=== PATIENT | male | born 1960 | race African-American/Black ===

== ENCOUNTER 2018-06-05 11:41 | Inpatient (IN) | payer OTHER ==
[~2018-06-05] VITALS: Ht 175.3 cm; Wt 87.5 kg
[2018-06-05 12:28] LABS: BASOPHILS % 0.3 % (0.0-2.0); EOSINOPHILS % 0.7 % (0.0-5.0); HEMATOCRIT. 44.7 % (42.0-52.0); HEMOGLOBIN. 15.1 g/dL (14.0-18.0); LYMPHOCYTES % 8.3 % (20.0-50.0); MEAN CORPUSCULAR HEMOGLOBIN 30.4 pg (28.0-32.0); MEAN CORPUSCULAR VOLUME 89.9 fL (80.0-94.0); MEAN PLATELET VOLUME 9.8 fl (7.4-10.4); MONOCYTES % 5.7 % (2.0-8.0); PLATELET 186 x1000/uL (130-400); RED BLOOD CELL COUNT 4.97 mill/uL (4.7-6.1); RED CELL DISTRIBUTION WIDTH 14.1 % (11.6-14.6)
[2018-06-05 12:34] LABS: INR 1.1; PROTHROMBIN TIME 10.7 sec (9.1-11.1)
[2018-06-05] MEDS ORDERED: IOHEXOL-350 100 ML BOTTLE ONE (12:38)
[2018-06-05 12:51] LABS: CHLORIDE 95 mEq/L (98-107)
[2018-06-05 12:55] LABS: ETHANOL BLOOD < 10 mg/dL
[2018-06-05 12:58] LABS: LDL CHOLESTEROL 49 mg/dL (5-100)
[2018-06-05] MEDS ORDERED: ASPIRIN 81MG TABLET PO ONE (13:00)
[2018-06-05 13:04] LABS: CLARITY URINE TURBID (CLEAR); COLOR URINE DARK YELLOW (YELLOW); KETONES URINE TRACE (NEGATIVE); LEUKOCYTE ESTERASE URINE NEGATIVE (NEGATIVE); NITRITE URINE NEGATIVE (NEGATIVE); OCCULT BLOOD URINE 3+ (NEGATIVE); PH URINE 5.5 (4.5-8.0); PROTEIN URINE 3+ (NEGATIVE); SPECIFIC GRAVITY URINE 1.047 (1.005-1.030)
[2018-06-05 13:31] LABS: *AMPHETAMINES SCREEN URINE NEGATIVE (NEGATIVE); *BARBITURATES SCREEN URINE NEGATIVE (NEGATIVE); *BENZODIAZEPINES SCREEN URINE NEGATIVE (NEGATIVE); *COCAINE SCREEN URINE PRESUMTIVE POSITIVE (NEGATIVE); METHADONE URINE SCREEN NEGATIVE (NEGATIVE); PHENCYCLIDINE URINE SCREEN NEGATIVE (NEGATIVE)
[2018-06-05 13:32] LABS: CANNABINOID URINE SCREEN NEGATIVE (NEGATIVE)
[2018-06-05 13:33] LABS: OPIATES URINE SCREEN NEGATIVE (NEGATIVE)
[2018-06-05] MEDS ORDERED: ASPI-1158 PO (14:42)
[2018-06-05] MEDS ORDERED: CARV12.545 PO (14:42)
[2018-06-05] MEDS ORDERED: SPIR25TA6 PO (14:42)
[2018-06-05] MEDS ORDERED: TRAM50TA3 PO (14:42)
[2018-06-05] MEDS ORDERED: FURO40TA5 PO (14:42)
[2018-06-05] MEDS ORDERED: LISI10TA5 PO (14:42)
[2018-06-05] MEDS ORDERED: DEXTROSE 50% WATER 50ML SYRINGE IV PRN (15:00)
[2018-06-05] MEDS ORDERED: TRAMADOL 50MG TABLET PO PRN (15:00)
[2018-06-05 15:49] VITALS: BP 104/69
[2018-06-05] MEDS: ENOXAPARIN 30MG/0.3ML SYR SUBCUT SCH (17:02)
[2018-06-05] MEDS: BLOOD SUGAR DIAGNOSTIC STRIP TEST SCH ×2 (17:05→20:48)
[2018-06-05] MEDS: INSULIN LISPRO 100 UNITS/ML SUBCUT SCH ×2 (17:05→20:49)
[2018-06-05] MEDS: PIPERACILLIN/TAZ 3.375G PREMIX 50 ML IV SCH (17:33)
[2018-06-05 20:00] VITALS: BP 174/69
[2018-06-05] MEDS: CARVEDILOL 12.5MG TABLET PO SCH (20:55)
[2018-06-06] VITALS: BP 106/48
[2018-06-06] MEDS: PIPERACILLIN/TAZ 3.375G PREMIX 50 ML IV SCH ×3 (02:26→17:51)
[2018-06-06 04:00] VITALS: BP 97/64
[2018-06-06] MEDS: BLOOD SUGAR DIAGNOSTIC STRIP TEST SCH ×4 (06:23→20:15)
[2018-06-06 06:45] LABS: BASOPHILS % 0.2 % (0.0-2.0); EOSINOPHILS % 0.1 % (0.0-5.0); HEMATOCRIT. 42.9 % (42.0-52.0); HEMOGLOBIN. 14.3 g/dL (14.0-18.0); LYMPHOCYTES % 9.5 % (20.0-50.0); MEAN CORPUSCULAR HEMOGLOBIN 30.1 pg (28.0-32.0); MEAN PLATELET VOLUME 9.7 fl (7.4-10.4); MONOCYTES % 6.3 % (2.0-8.0); NEUTROPHILS % 83.9 % (40.0-76.0); PLATELET 149 x1000/uL (130-400); RED BLOOD CELL COUNT 4.76 mill/uL (4.7-6.1); RED CELL DISTRIBUTION WIDTH 13.9 % (11.6-14.6)
[2018-06-06] MEDS: INSULIN LISPRO 100 UNITS/ML SUBCUT SCH ×4 (07:40→20:15)
[2018-06-06 07:43] VITALS: BP 85/52
[2018-06-06] MEDS ORDERED: SPIRONOLACTONE 50MG TABLET PO SCH (09:00)
[2018-06-06] MEDS ORDERED: LISINOPRIL 10MG TABLET PO SCH (09:00)
[2018-06-06] MEDS: CARVEDILOL 12.5MG TABLET PO SCH ×2 (09:00→20:39)
[2018-06-06] MEDS ORDERED: FUROSEMIDE 40MG TABLET PO SCH (09:00)
[2018-06-06] MEDS ORDERED: ASPIRIN 81MG TABLET PO SCH (09:00)
[2018-06-06 10:31] LABS: VITAMIN B12 SERUM 925 pg/mL (211-911)
[2018-06-06] MEDS: CLOPIDOGREL 75MG TABLET PO SCH (10:47)
[2018-06-06] MEDS: MULTIVITAMINS,THER W-MINERALS TABLET PO SCH (10:47)
[2018-06-06] MEDS: FOLIC ACID 1MG TABLET PO SCH (10:47)
[2018-06-06] MEDS: THIAMINE HCL 100MG TABLET PO SCH (10:47)
[2018-06-06 11:11] LABS: FOLIC ACID (FOLATE) SERUM > 20.00 ng/mL (>5.38)
[2018-06-06 11:30] VITALS: BP 92/69
[2018-06-06] MEDS ORDERED: IPRATROPIUM/ALBUTEROL 0.5-3(2.5)MG/3ML NEB HHN PRN (11:30)
[2018-06-06] MEDS: IPRATROPIUM/ALBUTEROL 0.5-3(2.5)MG/3ML NEB HHN SCH ×3 (12:00→20:43)
[2018-06-06 14:41] LABS: T4 FREE 1.12 ng/dL (0.76-1.46)
[2018-06-06 15:03] LABS: HEPATITIS B SURFACE ANTIGEN NEGATIVE
[2018-06-06 15:15] VITALS: BP 107/65
[2018-06-06 15:31] LABS: HEPATITIS B CORE AB IGM NEGATIVE
[2018-06-06 15:33] LABS: HEPATITIS A AB IGM NEGATIVE (NEGATIVE)
[2018-06-06] MEDS: ENOXAPARIN 30MG/0.3ML SYR SUBCUT SCH (16:00)
[2018-06-06 17:12] LABS: CREATINE KINASE 2933 IU/L (39-308)
[2018-06-06 19:30] VITALS: BP 117/63
[2018-06-07] VITALS (78 sets, daily range): BP systolic 56–141; BP diastolic 20–84
[2018-06-07] MEDS ORDERED: SODIUM CHLORIDE 0.9% 500 ML IV NR ×2 (00:30→02:15)
[2018-06-07] MEDS: IPRATROPIUM/ALBUTEROL 0.5-3(2.5)MG/3ML NEB HHN SCH ×3 (01:06→20:18)
[2018-06-07] MEDS: PIPERACILLIN/TAZ 3.375G PREMIX 50 ML IV SCH ×3 (01:32→18:30)
[2018-06-07] MEDS ORDERED: ONDANSETRON HCL 4MG/2ML INJ IV PRN (02:15)
[2018-06-07] MEDS: ACETAMINOPHEN 650MG/20.3ML UDC PO PRN ×2 (02:24→20:51)
[2018-06-07] MEDS ORDERED: SODIUM CHLORIDE 0.9% 1,000 ML IV SCH (05:15)
[2018-06-07] MEDS: NOREPINEPHRINE 16 MG in DEXT 5% WATER 234 ML IV PRN (05:41)
[2018-06-07 05:46] LABS: BASOPHILS % 0.3 % (0.0-2.0); HEMATOCRIT. 38.1 % (42.0-52.0); LYMPHOCYTES % 9.7 % (20.0-50.0); MEAN CORPUSCULAR HEMOGLOBIN 30.6 pg (28.0-32.0); MEAN CORPUSCULAR VOLUME 89.5 fL (80.0-94.0); MONOCYTES % 5.6 % (2.0-8.0); NEUTROPHILS % 84.4 % (40.0-76.0); PLATELET 165 x1000/uL (130-400); RED BLOOD CELL COUNT 4.26 mill/uL (4.7-6.1); RED CELL DISTRIBUTION WIDTH 13.9 % (11.6-14.6)
[2018-06-07 06:22] LABS: PHOSPHORUS 8.9 mg/dL (2.5-4.9)
[2018-06-07] MEDS: CARVEDILOL 12.5MG TABLET PO SCH (08:05)
[2018-06-07] MEDS: BLOOD SUGAR DIAGNOSTIC STRIP TEST SCH ×4 (08:07→21:00)
[2018-06-07] MEDS: INSULIN LISPRO 100 UNITS/ML SUBCUT SCH ×4 (08:08→21:00)
[2018-06-07] MEDS: MULTIVITAMINS,THER W-MINERALS TABLET PO SCH (08:15)
[2018-06-07] MEDS: THIAMINE HCL 100MG TABLET PO SCH (08:15)
[2018-06-07] MEDS: CLOPIDOGREL 75MG TABLET PO SCH (08:15)
[2018-06-07] MEDS: FOLIC ACID 1MG TABLET PO SCH (08:15)
[2018-06-07 09:38] LABS: BG BASE EXCESS -8.9 mmol/L (-2.0-2.0); BG CARBOXYHEMOGLOBIN 0.3 % (0.5-1.5); BG DEOXYHEMOGLOBIN 5.8 % (0.0-5.0); BG FRACTION INSPIRED OXYGEN 28; BG HCO3 ACT 15.7 mmol/L (22.0-26.0); BG METHEMOGLOBIN 0.3 % (0.0-1.5); BG OXYGEN SATURATION 94.2 % (92.0-98.5); BG OXYHEMOGLOBIN 93.6 % (94.0-97.0); BG PCO2 30.7 mmHg (35.0-45.0); BG PH 7.328 (7.350-7.450); BG PO2 78.6 mmHg (75.0-100.0); BG SAMPLE SITE LEFT RADIAL; BG TOTAL HEMOGLOBIN 13.8 g/dL (12.0-18.0); BG VENT MODE NASAL CANNULA
[2018-06-07] MEDS ORDERED: LIDOCAINE HCL 1% 20ML VIAL (Pyxis) INJ ONE (10:27)
[2018-06-07] MEDS: ENOXAPARIN 30MG/0.3ML SYR SUBCUT SCH (16:34)
[2018-06-08] VITALS (105 sets, daily range): BP systolic 70–165; BP diastolic 42–94
[2018-06-08] MEDS: PIPERACILLIN/TAZ 3.375G PREMIX 50 ML IV SCH ×2 (01:33→11:48)
[2018-06-08] MEDS: IPRATROPIUM/ALBUTEROL 0.5-3(2.5)MG/3ML NEB HHN SCH ×4 (02:41→20:02)
[2018-06-08] MEDS: ACETAMINOPHEN 650MG/20.3ML UDC PO PRN ×3 (04:02→23:47)
[2018-06-08] MEDS: NOREPINEPHRINE 16 MG in DEXT 5% WATER 234 ML IV PRN (04:52)
[2018-06-08 06:04] LABS: HEMATOCRIT. 34.3 % (42.0-52.0); HEMOGLOBIN. 11.6 g/dL (14.0-18.0); MEAN CORPUSCULAR HEMOGLOBIN 30.5 pg (28.0-32.0); MEAN CORPUSCULAR VOLUME 90.1 fL (80.0-94.0); MEAN PLATELET VOLUME 9.8 fl (7.4-10.4); PLATELET 177 x1000/uL (130-400); RED BLOOD CELL COUNT 3.81 mill/uL (4.7-6.1); RED CELL DISTRIBUTION WIDTH 14.3 % (11.6-14.6)
[2018-06-08 06:39] LABS: PHOSPHORUS 7.3 mg/dL (2.5-4.9)
[2018-06-08 07:34] LABS: ATYPICAL LYMPHOCYTES 2; PLATELET ESTIMATE NORMAL
[2018-06-08] MEDS: INSULIN LISPRO 100 UNITS/ML SUBCUT SCH ×4 (08:20→20:58)
[2018-06-08] MEDS: BLOOD SUGAR DIAGNOSTIC STRIP TEST SCH ×4 (08:45→20:58)
[2018-06-08] MEDS: CLOPIDOGREL 75MG TABLET PO SCH (09:27)
[2018-06-08] MEDS: MULTIVITAMINS,THER W-MINERALS TABLET PO SCH (09:27)
[2018-06-08] MEDS: FOLIC ACID 1MG TABLET PO SCH (09:27)
[2018-06-08] MEDS: THIAMINE HCL 100MG TABLET PO SCH (09:27)
[2018-06-08 13:10] LABS: ANTI-CARDIOLIPIN AB IGA < 9 APL U/mL (0-11); ANTI-CARDIOLIPIN AB IGG < 9 GPL U/mL (0-14); ANTI-CARDIOLIPIN AB IGM < 9 MPL U/mL (0-12); ANTI-THROMBIN ACTIVITY 98 % (75-135); DRVVT LA 67.1 sec (0.0-47.0); PROTEIN C FUNCTIONAL 84 % (73-180); PTT-LA 41.5 sec (0.0-51.9)
[2018-06-08] MEDS: PIPERACILLIN/TAZ 2.25G PREMIX 50 ML IV SCH ×2 (17:17→23:47)
[2018-06-08] MEDS: ENOXAPARIN 30MG/0.3ML SYR SUBCUT SCH (17:17)
[2018-06-08] MEDS ORDERED: PIPERACILLIN/TAZ 3.375G PREMIX 50 ML IV SCH (18:00)
[2018-06-09] VITALS (98 sets, daily range): BP systolic 27–136; BP diastolic 14–80
[2018-06-09] MEDS: IPRATROPIUM/ALBUTEROL 0.5-3(2.5)MG/3ML NEB HHN SCH ×4 (02:11→19:57)
[2018-06-09 06:07] LABS: BASOPHILS % 0.4 % (0.0-2.0); EOSINOPHILS % 0.5 % (0.0-5.0); HEMATOCRIT. 36.8 % (42.0-52.0); HEMOGLOBIN. 12.2 g/dL (14.0-18.0); LYMPHOCYTES % 9.4 % (20.0-50.0); MEAN CORPUSCULAR HEMOGLOBIN 30.1 pg (28.0-32.0); MEAN CORPUSCULAR VOLUME 90.5 fL (80.0-94.0); MEAN PLATELET VOLUME 9.5 fl (7.4-10.4); MONOCYTES % 6.5 % (2.0-8.0); NEUTROPHILS % 83.2 % (40.0-76.0); PLATELET 214 x1000/uL (130-400); RED BLOOD CELL COUNT 4.07 mill/uL (4.7-6.1); RED CELL DISTRIBUTION WIDTH 14.3 % (11.6-14.6)
[2018-06-09 06:14] LABS: DRVVT LA CONFIRMATION 1.5 ratio (0.8-1.2); DRVVT MIX LA 48.9 sec (0.0-47.0); LUPUS ANTICOAG INTERPRETATION Comment: (.)
[2018-06-09 06:16] LABS: PHOSPHORUS 6.7 mg/dL (2.5-4.9)
[2018-06-09] MEDS: BLOOD SUGAR DIAGNOSTIC STRIP TEST SCH ×4 (07:50→21:00)
[2018-06-09] MEDS: INSULIN LISPRO 100 UNITS/ML SUBCUT SCH ×4 (08:07→21:00)
[2018-06-09] MEDS: PIPERACILLIN/TAZ 2.25G PREMIX 50 ML IV SCH ×3 (08:43→23:36)
[2018-06-09] MEDS: MULTIVITAMINS,THER W-MINERALS TABLET PO SCH (08:43)
[2018-06-09] MEDS: CLOPIDOGREL 75MG TABLET PO SCH (08:43)
[2018-06-09] MEDS: FOLIC ACID 1MG TABLET PO SCH (08:43)
[2018-06-09] MEDS: THIAMINE HCL 100MG TABLET PO SCH (08:44)
[2018-06-09] MEDS: PANTOPRAZOLE SODIUM 40 MG/VIAL IV SCH (11:08)
[2018-06-09] MEDS: ENOXAPARIN 30MG/0.3ML SYR SUBCUT SCH (15:58)
[2018-06-09] MEDS: NOREPINEPHRINE 16 MG in DEXT 5% WATER 234 ML IV PRN (16:00)
[2018-06-09] MEDS ORDERED: MIDODRINE HCL 5MG TABLET PO SCH ×2 (17:00)
[2018-06-10] VITALS (81 sets, daily range): BP systolic 79–144; BP diastolic 36–82
[2018-06-10] MEDS: IPRATROPIUM/ALBUTEROL 0.5-3(2.5)MG/3ML NEB HHN SCH ×4 (01:47→20:45)
[2018-06-10 06:32] LABS: BASOPHILS % 0.6 % (0.0-2.0); EOSINOPHILS % 2.4 % (0.0-5.0); HEMATOCRIT. 35.8 % (42.0-52.0); LYMPHOCYTES % 9.8 % (20.0-50.0); MEAN CORPUSCULAR HEMOGLOBIN 30.4 pg (28.0-32.0); MEAN CORPUSCULAR VOLUME 90.4 fL (80.0-94.0); MEAN PLATELET VOLUME 9.2 fl (7.4-10.4); MONOCYTES % 10.3 % (2.0-8.0); NEUTROPHILS % 76.9 % (40.0-76.0); PLATELET 247 x1000/uL (130-400); RED BLOOD CELL COUNT 3.96 mill/uL (4.7-6.1); RED CELL DISTRIBUTION WIDTH 14.6 % (11.6-14.6)
[2018-06-10 06:35] LABS: CHLORIDE 97 mEq/L (98-107)
[2018-06-10 06:45] LABS: PHOSPHORUS 6.7 mg/dL (2.5-4.9)
[2018-06-10] MEDS ORDERED: NOREPINEPHRINE 16 MG in DEXT 5% WATER 234 ML IV PRN (07:30)
[2018-06-10] MEDS: BLOOD SUGAR DIAGNOSTIC STRIP TEST SCH ×5 (07:50→21:28)
[2018-06-10] MEDS: INSULIN LISPRO 100 UNITS/ML SUBCUT SCH ×4 (08:18→21:00)
[2018-06-10] MEDS: MIDODRINE HCL 5MG TABLET PO SCH ×3 (08:24→16:35)
[2018-06-10] MEDS: PANTOPRAZOLE SODIUM 40 MG/VIAL IV SCH (08:24)
[2018-06-10] MEDS: PIPERACILLIN/TAZ 2.25G PREMIX 50 ML IV SCH ×2 (08:24→16:33)
[2018-06-10] MEDS: FOLIC ACID 1MG TABLET PO SCH (08:24)
[2018-06-10] MEDS: MULTIVITAMINS,THER W-MINERALS TABLET PO SCH (08:25)
[2018-06-10] MEDS: CLOPIDOGREL 75MG TABLET PO SCH (08:25)
[2018-06-10] MEDS: THIAMINE HCL 100MG TABLET PO SCH (08:26)
[2018-06-10] MEDS: ENOXAPARIN 30MG/0.3ML SYR SUBCUT SCH (16:34)
[2018-06-11] VITALS (17 sets, daily range): BP systolic 72–119; BP diastolic 36–76
[2018-06-11] MEDS: PIPERACILLIN/TAZ 2.25G PREMIX 50 ML IV SCH ×4 (01:19→23:55)
[2018-06-11] MEDS: IPRATROPIUM/ALBUTEROL 0.5-3(2.5)MG/3ML NEB HHN SCH ×4 (02:11→21:52)
[2018-06-11 05:01] LABS: BASOPHILS % 0.5 % (0.0-2.0); EOSINOPHILS % 5.1 % (0.0-5.0); HEMOGLOBIN. 11.4 g/dL (14.0-18.0); LYMPHOCYTES % 9.7 % (20.0-50.0); MEAN CORPUSCULAR HEMOGLOBIN 30.1 pg (28.0-32.0); MEAN CORPUSCULAR VOLUME 89.6 fL (80.0-94.0); MEAN PLATELET VOLUME 8.9 fl (7.4-10.4); MONOCYTES % 5.7 % (2.0-8.0); PLATELET 290 x1000/uL (130-400); RED BLOOD CELL COUNT 3.79 mill/uL (4.7-6.1); RED CELL DISTRIBUTION WIDTH 14.5 % (11.6-14.6)
[2018-06-11 05:52] LABS: CHLORIDE 100 mEq/L (98-107)
[2018-06-11 05:58] LABS: PHOSPHORUS 5.7 mg/dL (2.5-4.9)
[2018-06-11] MEDS: INSULIN LISPRO 100 UNITS/ML SUBCUT SCH ×4 (07:47→21:00)
[2018-06-11] MEDS: BLOOD SUGAR DIAGNOSTIC STRIP TEST SCH ×4 (07:47→21:18)
[2018-06-11] MEDS: THIAMINE HCL 100MG TABLET PO SCH (08:18)
[2018-06-11] MEDS: CLOPIDOGREL 75MG TABLET PO SCH (08:18)
[2018-06-11] MEDS: MULTIVITAMINS,THER W-MINERALS TABLET PO SCH (08:19)
[2018-06-11] MEDS: FOLIC ACID 1MG TABLET PO SCH (08:19)
[2018-06-11] MEDS: PANTOPRAZOLE SODIUM 40 MG/VIAL IV SCH (08:19)
[2018-06-11] MEDS: MIDODRINE HCL 5MG TABLET PO SCH ×3 (08:19→17:45)
[2018-06-11] MEDS: ENOXAPARIN 30MG/0.3ML SYR SUBCUT SCH (17:46)
[2018-06-12] VITALS (16 sets, daily range): BP systolic 104–141; BP diastolic 62–85
[2018-06-12] MEDS: IPRATROPIUM/ALBUTEROL 0.5-3(2.5)MG/3ML NEB HHN SCH ×4 (02:29→21:50)
[2018-06-12] MEDS: BLOOD SUGAR DIAGNOSTIC STRIP TEST SCH ×4 (06:41→21:03)
[2018-06-12 06:56] LABS: BASOPHILS % 0.4 % (0.0-2.0); EOSINOPHILS % 6.3 % (0.0-5.0); HEMATOCRIT. 34.9 % (42.0-52.0); HEMOGLOBIN. 11.7 g/dL (14.0-18.0); LYMPHOCYTES % 8.5 % (20.0-50.0); MEAN CORPUSCULAR VOLUME 89.8 fL (80.0-94.0); MEAN PLATELET VOLUME 8.3 fl (7.4-10.4); NEUTROPHILS % 76.8 % (40.0-76.0); PLATELET 352 x1000/uL (130-400); RED BLOOD CELL COUNT 3.88 mill/uL (4.7-6.1); RED CELL DISTRIBUTION WIDTH 14.4 % (11.6-14.6)
[2018-06-12] MEDS: INSULIN LISPRO 100 UNITS/ML SUBCUT SCH ×4 (07:50→21:00)
[2018-06-12] MEDS: PIPERACILLIN/TAZ 2.25G PREMIX 50 ML IV SCH ×2 (08:00→15:08)
[2018-06-12] MEDS ORDERED: FENTANYL CITRATE/PF 50MCG/ML 2ML VIAL ONE (08:28)
[2018-06-12] MEDS ORDERED: SODIUM BICARBONATE 4% (2.4MEQ) 5ML VIAL IV ONE (08:28)
[2018-06-12] MEDS ORDERED: LIDOCAINE HCL 1% 20ML VIAL (Pyxis) INJ ONE (08:28)
[2018-06-12 08:55] LABS: PHOSPHORUS 6.3 mg/dL (2.5-4.9)
[2018-06-12] MEDS ORDERED: FENTANYL CITRATE/PF 50MCG/ML 2ML VIAL IV ONE (09:30)
[2018-06-12] MEDS: MIDODRINE HCL 5MG TABLET PO SCH ×2 (13:00→17:00)
[2018-06-12] MEDS: FAMOTIDINE 20MG TABLET PO SCH (14:43)
[2018-06-12] MEDS: FOLIC ACID 1MG TABLET PO SCH (14:43)
[2018-06-12] MEDS: CLOPIDOGREL 75MG TABLET PO SCH (14:43)
[2018-06-12] MEDS: MULTIVITAMINS,THER W-MINERALS TABLET PO SCH (14:43)
[2018-06-12] MEDS: THIAMINE HCL 100MG TABLET PO SCH (14:44)
[2018-06-12] MEDS: CALCIUM ACETATE 667MG CAPSULE PO SCH (18:56)
[2018-06-12] MEDS: ENOXAPARIN 30MG/0.3ML SYR SUBCUT SCH (19:00)
[2018-06-13] VITALS: BP 128/72
[2018-06-13] MEDS: PIPERACILLIN/TAZ 2.25G PREMIX 50 ML IV SCH ×3 (00:02→17:46)
[2018-06-13 04:00] VITALS: BP 118/60
[2018-06-13 06:22] LABS: BASOPHILS % 0.5 % (0.0-2.0); EOSINOPHILS % 5.1 % (0.0-5.0); HEMATOCRIT. 33.2 % (42.0-52.0); HEMOGLOBIN. 11.3 g/dL (14.0-18.0); LYMPHOCYTES % 9.9 % (20.0-50.0); MEAN CORPUSCULAR HEMOGLOBIN 30.3 pg (28.0-32.0); MEAN CORPUSCULAR VOLUME 88.7 fL (80.0-94.0); MEAN PLATELET VOLUME 8.1 fl (7.4-10.4); MONOCYTES % 7.2 % (2.0-8.0); NEUTROPHILS % 77.3 % (40.0-76.0); PLATELET 391 x1000/uL (130-400); RED BLOOD CELL COUNT 3.74 mill/uL (4.7-6.1); RED CELL DISTRIBUTION WIDTH 14.7 % (11.6-14.6)
[2018-06-13] MEDS: BLOOD SUGAR DIAGNOSTIC STRIP TEST SCH ×4 (06:22→20:45)
[2018-06-13 06:47] LABS: PHOSPHORUS 5.5 mg/dL (2.5-4.9)
[2018-06-13] MEDS: INSULIN LISPRO 100 UNITS/ML SUBCUT SCH ×4 (07:50→20:45)
[2018-06-13 08:00] VITALS: BP 122/73
[2018-06-13] MEDS: MULTIVITAMINS,THER W-MINERALS TABLET PO SCH (08:56)
[2018-06-13] MEDS: THIAMINE HCL 100MG TABLET PO SCH (08:56)
[2018-06-13] MEDS: CLOPIDOGREL 75MG TABLET PO SCH (08:56)
[2018-06-13] MEDS: FOLIC ACID 1MG TABLET PO SCH (08:56)
[2018-06-13] MEDS: MIDODRINE HCL 5MG TABLET PO SCH (08:56)
[2018-06-13] MEDS: FAMOTIDINE 20MG TABLET PO SCH (08:56)
[2018-06-13] MEDS: CALCIUM ACETATE 667MG CAPSULE PO SCH ×3 (08:56→17:47)
[2018-06-13 12:00] VITALS: BP 126/69
[2018-06-13] MEDS: CARVEDILOL 3.125 MG TABLET PO SCH ×2 (13:51→20:44)
[2018-06-13] MEDS: IPRATROPIUM/ALBUTEROL 0.5-3(2.5)MG/3ML NEB HHN SCH (15:44)
[2018-06-13 16:00] VITALS: BP 118/78
[2018-06-13] MEDS: ENOXAPARIN 30MG/0.3ML SYR SUBCUT SCH (17:47)
[2018-06-13 20:00] VITALS: BP 108/67
[2018-06-14] VITALS: BP 107/67
[2018-06-14] MEDS: PIPERACILLIN/TAZ 2.25G PREMIX 50 ML IV SCH ×3 (01:02→16:35)
[2018-06-14 04:00] VITALS: BP 118/72
[2018-06-14] MEDS: BLOOD SUGAR DIAGNOSTIC STRIP TEST SCH ×2 (06:23→13:17)
[2018-06-14 06:26] LABS: BASOPHILS % 0.5 % (0.0-2.0); EOSINOPHILS % 3.2 % (0.0-5.0); HEMATOCRIT. 33.6 % (42.0-52.0); HEMOGLOBIN. 11.5 g/dL (14.0-18.0); LYMPHOCYTES % 9.2 % (20.0-50.0); MEAN CORPUSCULAR HEMOGLOBIN 30.7 pg (28.0-32.0); MEAN CORPUSCULAR VOLUME 89.5 fL (80.0-94.0); MONOCYTES % 4.9 % (2.0-8.0); NEUTROPHILS % 82.2 % (40.0-76.0); PLATELET 384 x1000/uL (130-400); RED BLOOD CELL COUNT 3.76 mill/uL (4.7-6.1)
[2018-06-14 06:48] LABS: PHOSPHORUS 5.6 mg/dL (2.5-4.9)
[2018-06-14] MEDS: INSULIN LISPRO 100 UNITS/ML SUBCUT SCH ×2 (07:50→12:50)
[2018-06-14 08:00] VITALS: BP 129/79
[2018-06-14] MEDS: CALCIUM ACETATE 667MG CAPSULE PO SCH ×2 (08:33→14:50)
[2018-06-14] MEDS: THIAMINE HCL 100MG TABLET PO SCH (08:34)
[2018-06-14] MEDS: FAMOTIDINE 20MG TABLET PO SCH (08:34)
[2018-06-14] MEDS: CLOPIDOGREL 75MG TABLET PO SCH (08:34)
[2018-06-14] MEDS: FOLIC ACID 1MG TABLET PO SCH (08:34)
[2018-06-14] MEDS: MULTIVITAMINS,THER W-MINERALS TABLET PO SCH (08:34)
[2018-06-14] MEDS: CARVEDILOL 3.125 MG TABLET PO SCH (08:37)
[2018-06-14] MEDS ORDERED: LISINOPRIL 5MG TABLET PO SCH (09:00)
[2018-06-14] MEDS ORDERED: CLOP75TA16 PO (11:42)
[2018-06-14] MEDS ORDERED: LISI-186 PO (11:42)
[2018-06-14] MEDS ORDERED: COR3 PO (11:42)
[2018-06-14] MEDS ORDERED: CALC667C PO (11:42)
[2018-06-14 12:00] VITALS: BP 114/63
[2018-06-14 14:55] VITALS: BP 114/63
[2018-06-14 16:00] VITALS: BP 120/78
[2018-06-14] MEDS: ENOXAPARIN 30MG/0.3ML SYR SUBCUT SCH (16:37)
== END 2018-06-14 17:43 | disposition home health service (06) | DRG 720 ==
LOC: ER 11:41 → 6WST 12:54 → ENRESERV 13:40 → CVICU 06-07 04:00 → 6WST 06-11 14:13
PROVIDERS: ADMIT Internal Medicine; ATTEND Internal Medicine
PROC: 06HY33Z Insertion of Infusion Device into Lower Vein, Percutaneous Approach (ICD-10-PCS; principal; 2018-06-07)
PROC: B54BZZA Ultrasonography of Right Lower Extremity Veins, Guidance (ICD-10-PCS; 2018-06-07)
PROC: 5A1D70Z Performance of Urinary Filtration, Intermittent, Less than 6 Hours Per Day (ICD-10-PCS; 2018-06-07)
PROC: 5A1D70Z Performance of Urinary Filtration, Intermittent, Less than 6 Hours Per Day (ICD-10-PCS; 2018-06-08)
PROC: 5A1D70Z Performance of Urinary Filtration, Intermittent, Less than 6 Hours Per Day (ICD-10-PCS; 2018-06-10)
PROC: 0JH63XZ Insertion of Tunneled Vascular Access Device into Chest Subcutaneous Tissue and Fascia, Percutaneous Approach (ICD-10-PCS; 2018-06-12)
PROC: 02HV33Z Insertion of Infusion Device into Superior Vena Cava, Percutaneous Approach (ICD-10-PCS; 2018-06-12)
PROC: B5181ZA Fluoroscopy of Superior Vena Cava using Low Osmolar Contrast, Guidance (ICD-10-PCS; 2018-06-12)
PROC: B548ZZA Ultrasonography of Superior Vena Cava, Guidance (ICD-10-PCS; 2018-06-12)
PROC: 5A1D70Z Performance of Urinary Filtration, Intermittent, Less than 6 Hours Per Day (ICD-10-PCS; 2018-06-12)
PROC: 5A1D70Z Performance of Urinary Filtration, Intermittent, Less than 6 Hours Per Day (ICD-10-PCS; 2018-06-14)
DX: A41.9 Sepsis, unspecified organism (principal); I63.9 Cerebral infarction, unspecified; J96.00 Acute respiratory failure, unspecified whether with hypoxia or hypercapnia; N17.9 Acute kidney failure, unspecified; J69.0 Pneumonitis due to inhalation of food and vomit; E43 Unspecified severe protein-calorie malnutrition; I42.9 Cardiomyopathy, unspecified; N18.6 End stage renal disease; R65.21 Severe sepsis with septic shock; I50.23 Acute on chronic systolic (congestive) heart failure; F14.129 Cocaine abuse with intoxication, unspecified; E87.1 Hypo-osmolality and hyponatremia; Z68.29 Body mass index [BMI] 29.0-29.9, adult; M62.82 Rhabdomyolysis; E11.22 Type 2 diabetes mellitus with diabetic chronic kidney disease; R47.1 Dysarthria and anarthria; E87.8 Other disorders of electrolyte and fluid balance, not elsewhere classified; I13.2 Hypertensive heart and chronic kidney disease with heart failure and with stage 5 chronic kidney disease, or end stage renal disease; I34.0 Nonrheumatic mitral (valve) insufficiency; Z82.49 Family history of ischemic heart disease and other diseases of the circulatory system; Z83.3 Family history of diabetes mellitus; Z86.73 Personal history of transient ischemic attack (TIA), and cerebral infarction without residual deficits; Z91.14 Patient's other noncompliance with medication regimen; Z91.19 Patient's noncompliance with other medical treatment and regimen
CPT/HCPCS: 36415; 36558; 36569; 36600; 70450; 70496; 70498; 70551; 71045; 71250; 76770; 76937; 77001; 80048; 80053; 80061; 80305; 81003; 81400; 81403; 81407; 81479; 82375; 82533; 82550; 82607; 82746; 82805; 82962; 83036; 83721; 83735; 83880; 84100; 84439; 84443; 84481; 84484; 85025; 85300; 85303; 85306; 85610; 85613; 85732; 86147; 86705; 86706; 86709; 86803; 87040; 87340; 92610; 93005; 93306; 94640; 97116; 97163; 97164; 97166; 97168; 97530; 97535; 99285; C1750; C1752; C1769; C9113; G0482; J1642; J1650; J1815; J2405; J2543; J3010; J3490; J7030; J7040; J7050; J7060; J7620; Q9967; A4315

== ENCOUNTER 2018-06-16 10:46 | Emergency (ER) | payer OTHER ==
[~2018-06-16] VITALS: Ht 172.7 cm; Wt 85.0 kg
[~2018-06-16 10:46] MED LIST: ASPI-1158 PO; CALC667C PO; CARV12.545 PO; CLOP75TA16 PO; COR3 PO; FURO40TA5 PO; LISI-186 PO; LISI10TA5 PO; SPIR25TA6 PO; TRAM50TA3 PO
[2018-06-16 12:17] LABS: BASOPHILS % 0.6 % (0.0-2.0); HEMATOCRIT. 34.8 % (42.0-52.0); HEMOGLOBIN. 11.8 g/dL (14.0-18.0); LYMPHOCYTES % 16.6 % (20.0-50.0); MEAN CORPUSCULAR HEMOGLOBIN 30.2 pg (28.0-32.0); MEAN CORPUSCULAR VOLUME 89.4 fL (80.0-94.0); MEAN PLATELET VOLUME 7.4 fl (7.4-10.4); MONOCYTES % 7.4 % (2.0-8.0); NEUTROPHILS % 71.4 % (40.0-76.0); PLATELET 429 x1000/uL (130-400); RED BLOOD CELL COUNT 3.89 mill/uL (4.7-6.1); RED CELL DISTRIBUTION WIDTH 14.4 % (11.6-14.6)
[2018-06-16 12:24] LABS: CHLORIDE 96 mEq/L (98-107)
[2018-06-16 15:03] VITALS: BP 138/94
== END 2018-06-16 15:07 | disposition home or self-care (01) ==
LOC: ER 11:00
DX: R68.89 Other general symptoms and signs (principal); F12.10 Cannabis abuse, uncomplicated; E11.9 Type 2 diabetes mellitus without complications; I10 Essential (primary) hypertension; Z86.73 Personal history of transient ischemic attack (TIA), and cerebral infarction without residual deficits; Z79.899 Other long term (current) drug therapy; Z79.82 Long term (current) use of aspirin
CPT/HCPCS: 36415; 80053; 85025; 93005; 99285; Z7610

== ENCOUNTER 2018-09-10 12:58 | Emergency (ER) | payer MEDICAID, OTHER ==
[~2018-09-10] VITALS: Ht 175.3 cm; Wt 86.0 kg
[~2018-09-10 12:58] MED LIST changes: -ASPI-1158 PO; -CARV12.545 PO; -FURO40TA5 PO; -LISI10TA5 PO; -SPIR25TA6 PO
[2018-09-10 13:28] VITALS: BP 111/73
== END 2018-09-10 17:50 | disposition left against medical advice (07) ==
LOC: ER 12:58
DX: Z53.21 Procedure and treatment not carried out due to patient leaving prior to being seen by health care provider (principal)

== ENCOUNTER 2018-09-14 09:50 | Emergency (ER) | payer MEDICAID ==
[~2018-09-14] VITALS: Ht 175.3 cm; Wt 86.0 kg
[2018-09-14 10:02] VITALS: BP 152/85
== END 2018-09-14 14:14 | disposition left against medical advice (07) ==
LOC: ER 09:57
DX: T82.897A Other specified complication of cardiac prosthetic devices, implants and grafts, initial encounter (principal); I11.0 Hypertensive heart disease with heart failure; I50.9 Heart failure, unspecified; Z86.73 Personal history of transient ischemic attack (TIA), and cerebral infarction without residual deficits; Z79.899 Other long term (current) drug therapy
CPT/HCPCS: 99281

== ENCOUNTER 2018-09-19 12:05 | Emergency (ER) | payer MEDICAID, OTHER ==
[~2018-09-19] VITALS: Ht 175.3 cm; Wt 88.0 kg
[2018-09-19 15:15] VITALS: BP 175/76
== END 2018-09-19 15:30 | disposition left against medical advice (07) ==
LOC: ER 12:05
DX: Z45.2 Encounter for adjustment and management of vascular access device (principal); I10 Essential (primary) hypertension
CPT/HCPCS: 99281

== ENCOUNTER 2019-02-13 14:15 | Emergency (ER) | payer OTHER ==
[~2019-02-13] VITALS: Ht 177.8 cm; Wt 86.0 kg
[~2019-02-13 14:15] MED LIST changes: -CLOP75TA16 PO; +CLOP75TA4 PO
[2019-02-13 14:35] VITALS: BP 163/98
== END 2019-02-13 19:18 | disposition left against medical advice (07) ==
LOC: ER 14:15
DX: Z45.2 Encounter for adjustment and management of vascular access device (principal); I12.0 Hypertensive chronic kidney disease with stage 5 chronic kidney disease or end stage renal disease; N18.6 End stage renal disease; Z99.2 Dependence on renal dialysis; Z79.899 Other long term (current) drug therapy
CPT/HCPCS: 99281